=== PATIENT | female | born 2000 | race Caucasian/White ===

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

== ENCOUNTER 2022-09-09 14:53 | Emergency (ER) | payer OTHER, SELFPAY ==
[2022-09-09 14:53] VITALS: BP 97/60; PULSE 107; RESP 18; TEMP 37.1; O2SAT 98; BMI 21.4
[2022-09-09 15:06] VITALS: BP 100/59; PULSE 91; RESP 18; O2SAT 97
--- NOTE | 2022-09-09 15:10 | CT_ITS ---
STUDY: CT BRAIN WITHOUT CONTRAST REASON FOR EXAM: Female, 22 years old. Trauma-fall two weeks ago RADIATION DOSAGE (If Supplied By Facility): CTDIvol = ( 44.99 ) mGy, DLP = ( 812.98 ) mGycm TECHNIQUE: Transaxial CT imaging of the brain was performed without administration of intravenous contrast material. Individualized dose optimization techniques were used for this CT. COMPARISON: No relevant priors. FINDINGS: Normal soft tissue structures. Normal calvarium. Normal size ventricles and extra-axial spaces for the patient''s age. Normal white matter tracts of the cerebral hemispheres. Normal basal ganglia and thalami. Normal brainstem. Normal cerebellum. There is no intracranial hemorrhage. There are no findings of an acute ischemic infarction. There is opacification of the visualized paranasal sinuses. CT/Brain/Head without Contrast IMPRESSION: No acute intracranial process. Pansinusitis. Electronically Signed: Shwetha Horvath MD at 15:43 EST ,
--- NOTE | 2022-09-09 15:11 | EDS_ITS ---
HPI History of Present Illness Chief Complaint: Dizziness Informant: patient Narrative Narrative: Patient is with episode of vomiting that occurred yesterday. She is also having headaches. Patient does not normally get headaches. She fell about 2 weeks ago after tripping and falling. She hit her head rather forcefully on concrete. However, there is no reported loss of consciousness. Since then she has been having just diffuse headaches that are just mild to moderate. Nothing really makes them better or worse. She has been able to function and go to school normally. Yesterday she started her menstrual cycle. She got nausea and vomiting with it. However the nausea is now gone. She has been able to eat and drink today without difficulty. She used to get nausea and vomiting when her menstrual cycle started but that has not happened in a while. She has no urinary symptoms. No fevers or chills. No coughing. She had a viral type syndrome a couple weeks ago but it resolved. Her current symptoms are the headache that she has been having for 2-week. It is overall mild. She was just concerned because she then got the vomiting yesterday. She has never had abdominal pain. She does have a history of anemia and she takes iron but this is not new or different dose. [facility] Medical History Low iron Home Medications iron 50 mg iron tablet 3 tab PO DAILY 09/09/22 [History Last Taken Unknown] [id number] 1 mg tablet 1 tab PO DAILY 09/09/22 [History Last Taken Unknown] Allergy/AdvReac Type Severity Reaction Status Date / Time No Known Allergies Allergy Verified 09/09/22 15:07 Social History Smoking Status: Never smoker ROS ROS ED Constitutional Constitutional ED: Denies chills, fever(s) or sweats Eyes Eyes: Denies blurry vision, change in vision or diplopia ENT ENT ED: Denies rhinorrhea or sore throat Cardiovascular Cardiovascular: Denies chest pain, palpitations or racing heartbeat Respiratory/Chest Respiratory/Chest: Denies cough or dyspnea Gastrointestinal Gastrointestinal: Reports nausea and vomiting; Denies abdominal pain, constipation, diarrhea or melena Genitourinary Genitourinary ED: Denies dysuria, hematuria or urinary frequency Musculoskeletal Musculoskeletal: Denies myalgias or neck pain Integumentary Denies rash Neurologic Neurologic: Reports headache(s); Denies paresthesias or weakness Endocrine Endocrinology: Denies polydipsia or polyuria Hematologic/Lymphatic Hematologic/Lymphatic: Reports anemia Allergic/Immunologic Allergic/Immunologic ED: Denies urticaria EXAM Physical Exam Const Vital Signs: 09/09/22 14:53 09/09/22 15:06 09/09/22 15:11 Temperature 98.7 F Temperature Source Temporal Pulse Rate 107 H 91 Respiratory Rate 18 18 Respiratory Effort Normal Non-Labored Respiratory Pattern Normal Blood Pressure 97/60 100/59 L Blood Pressure Mean 72 72 Pulse Ox 98 97 Oxygen Delivery Method Room Air Room Air Positive well nourished and well developed General Appearance ED: well developed and NAD HEENT Reports moist mucous membranes HEENT Narrative: No sign of head trauma. Eyes PERRL and EOMs intact bilaterally General Eye ED: Negative for pale conjunctiva or scleral icterus Neck supple General: Negative for tenderness Resp normal respiratory effort and clear to auscultation bilaterally Auscultation: Negative for rales, rhonchi or wheezes Cardio regular rate, regular rhythm and no murmurs GI normal to inspection, nondistended, normoactive bowel sounds, non-tender, non- distended and no masses Palpation: soft Back/Spine no CVA tenderness Extremity normal to inspection General Extremety ED: Negative for edema or tenderness General Extremity: Negative for edema Neuro oriented x3 Sensorium / Orientation: alert; Negative for orientation impaired, lethargic or stuporous Psych mental status grossly normal Skin no rashes or lesions noted MDM MDM MDM Narrative Medical decision making narrative: CT showed no acute process. CBC is normal including no sign of anemia. is negative. Electrolytes were relatively normal except did show some mild dehydration. This can be treated with oral fluids as the nausea is gone. I think the patient can go home at this time. Tylenol or Motrin as needed for headache. I will write for some Zofran in case the nausea returns. We discussed reasons that would prompt returning to the ER. Lab Data Attestation: I reviewed the patient's lab results. Labs: Laboratory Results - last 24 hr 09/09/22 09/09/22 09/09/22 15:20 15:20 15:20 WBC 8.3 RBC 4.90 Hgb 14.4 Hct 43.2 MCV 88.2 MCH 29.4 MCHC 33.3 RDW Std Deviation 40.4 RDW Coeff of Reji 12.5 Plt Count 277 MPV 10.4 Immature Gran % (Auto) 0.600 Neut % (Auto) 87.1 H Lymph % (Auto) 6.8 L [place] % (Auto) 5.3 Eos % (Auto) 0.0 Baso % (Auto) 0.2 Absolute Neuts (auto) 7.2 Absolute Lymphs (auto) 0.56 L Nucleated RBC % 0 Differential Comment SCANNED Sodium Cancelled Potassium Cancelled Chloride Cancelled Carbon Dioxide Cancelled Anion Gap Cancelled BUN Cancelled Creatinine Cancelled Estim Creat Clear Calc Cancelled Est GFR (MDRD) Af Amer Cancelled Est GFR (MDRD) Non-Af Cancelled BUN/Creatinine Ratio Cancelled Glucose Cancelled Calcium Cancelled Serum , Qual NEGATIVE 09/09/22 15:48 WBC RBC Hgb Hct MCV MCH MCHC RDW Std Deviation RDW Coeff of Reji Plt Count MPV Immature Gran % (Auto) Neut % (Auto) Lymph % (Auto) [place] % (Auto) Eos % (Auto) Baso % (Auto) Absolute Neuts (auto) Absolute Lymphs (auto) Nucleated RBC % Differential Comment Sodium 137 Potassium 4.2 Chloride 104 Carbon Dioxide 23.0 Anion Gap 10 BUN 19 H Creatinine 0.76 Estim Creat Clear Calc 114.82 Est GFR (MDRD) Af Amer 126 Est GFR (MDRD) Non-Af 104 BUN/Creatinine Ratio 25.2 H Glucose 105 Calcium 8.9 Serum , Qual Radiography Diagnostic Testing: Clinical Impression(s) from Imaging Studies Brain CT 09/09/22 15:10 IMPRESSION: No acute intracranial process. Pansinusitis. Electronically Signed: Shwetha Horvath MD at 15:43 EST , CT scan showed no acute process Discharge Plan Triage Chief Complaint: Dizziness ED Provider: Santos Platt Dx/Rx/DC Orders Clinical Impression: Post-concussion headache, Fall from slip, trip, or stumble Instructions: ED Concussion Prescriptions: No Action iron 50 mg iron Tablet 3 tab PO DAILY 1 mg Tablet 1 tab PO DAILY Primary Care Provider: NOT,DEFINED Referrals: Tammi Schmid DO [Med Staff - Active Staff] - 1 Week if not improving NOT,DEFINED [Primary Care Provider] - Disposition Disposition: Home, Self Care
[2022-09-09 15:26] LABS: Absolute Lymphocyte Count 0.56 X10^3/uL (0.83-4.51); Absolute Neutrophil Count 7.2 X10^3/uL (2.0-7.7); Basophil# 0.02 X10^3/uL; Basophil% 0.2 % (0-1); Hematocrit 43.2 % (37-47); Hemoglobin 14.4 g/dL (12.0-15.0); Lymphocyte # 0.56 X10^3/ul (0.83-4.51); Lymphocyte % 6.8 % (19-41); Mean Corp Hgb Conc 33.3 g/dL (32-36); Mean Corpuscular Hgb 29.4 pg (27.0-32.0); Mean Corpuscular Volume 88.2 fL (81-99); Mean Platelet Vol. 10.4 fl (6.2-12.0); Monocyte# 0.44 X10^3/uL; Monocyte% 5.3 % (0-10); NRBC Flagged by Analyzer 0 % (0-5); Neutrophil % 87.1 % (47-70); POSITIVE DIFFERENTIAL YES; Platelet Count 277 K/mm3 (150-450); RBC Distribution Width CV 12.5 % (11.6-14.6); RBC Distribution Width SD 40.4 fl (35.1-43.9); White Blood Count 8.3 K/mm3 (4.4-11.0)
[2022-09-09 15:45] LABS: Internal QC Validated? YES +Cl - CLEAR BKGD; Pregnancy, Serum, hCG Quali. NEGATIVE Negative
[2022-09-09 15:49] LABS: Differential Indicated SCAN CRITERIA MET
[2022-09-09 16:02] LABS: Differential Comment SCANNED
[2022-09-09 16:18] LABS: Anion Gap 10 (5-15); BUN 19 mg/dL (7-18); BUN/Creat Ratio 25.2 RATIO (10-20); Calcium,Total 8.9 mg/dL (8.5-10.1); Chloride 104 mmol/L (98-107); Creatinine, Serum 0.76 mg/dL (0.55-1.02); EST Glomerular Filtration Rate 104 mL/min (>60); Est Glom Filt Rate - Afr Amer 126 mL/min (>60); Estimated Creatinine Clearance 114.82 ml/min; Glucose 105 mg/dL (74-106); Potassium 4.2 mmol/L (3.5-5.1); Sodium Level 137 mmol/L (136-145)
[2022-09-09 16:34] VITALS: BP 98/57; PULSE 87; RESP 18; O2SAT 93
== END 2022-09-09 16:39 | disposition home or self-care (01) ==
PROVIDERS: Emergency Provider Emergency Medicine; Visit Provider Emergency Medicine
DX: F07.81 Postconcussional syndrome (principal); G44.309 Post-traumatic headache, unspecified, not intractable; E86.0 Dehydration; W01.0XXA Fall on same level from slipping, tripping and stumbling without subsequent striking against object, initial encounter
CPT/HCPCS: 70450; 80048; 84703; 85025; 99283; A4216